=== PATIENT | female | born 1970 | race Hispanic/Latino ===

== ENCOUNTER 2019-04-11 12:15 | Emergency (ER) | payer OTHER ==
[~2019-04-11] VITALS: Ht 154.9 cm; Wt 77.1 kg
--- OUTSIDE RECORDS SUMMARY | 2019-04-11 12:18 | XMS REPORT ---
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 Name Role Phone Anthony Echeverria CP Unavailable Allergies No Known Allergies Problems Problem Type Condition Code Onset Dates Condition Status Problem Transient cerebral ischemia, unspecified type G45.9 Active Problem Syncope, unspecified syncope type R55 Active Problem Left sided numbness R20.0 Active Problem Non-rheumatic mitral regurgitation I34.0 Active Problem Family history of coronary arteriosclerosis Z82.49 Active Problem Nonrheumatic tricuspid (valve) insufficiency I36.1 Active Problem Precordial pain R07.2 Active Problem DELACRUZ (dyspnea on exertion) R06.09 Active Problem Dizziness R42 Active Problem Palpitations R00.2 Active Medications No Known Medications Results No Known Results Summary Purpose [employer] Submission
--- OUTSIDE RECORDS SUMMARY | 2019-04-11 12:18 | XMS REPORT ---
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
--- OUTSIDE RECORDS SUMMARY | 2019-04-11 12:18 | XMS REPORT | Continuity of Care Document ---
Author Author [facility] Interface Address Unknown Phone Unavailable Problems Problem Status Onset Date Classification Date Reported Comments Source Transient cerebral ischemia, unspecified type Active Problem 09/28/2018 Mohamed O Jeroudi Syncope, unspecified syncope type Active Problem 09/28/2018 Mohamed O Jeroudi Left sided numbness Active Problem 09/28/2018 Mohamed O Jeroudi Non-rheumatic mitral regurgitation Active Problem 09/28/2018 Mohamed O Jeroudi Family history of coronary arteriosclerosis Active Problem 09/28/2018 Mohamed O Jeroudi Nonrheumatic tricuspid insufficiency Active Problem 09/28/2018 Mohamed O Jeroudi Precordial pain Active Problem 09/28/2018 Mohamed O Jeroudi DELACRUZ Active Problem 09/28/2018 Mohamed O Jeroudi Dizziness Active Problem 09/28/2018 Mohamed O Jeroudi Palpitations Active Problem 09/28/2018 Mohamed O Jeroudi Medications Medication Details Route Status Patient Instructions Ordering Provider Order Date Source Allergies, Adverse Reactions, Alerts Substance Category Reaction Severity Reaction type Status Date Reported Comments Source Immunizations Immunization Date Given Site Status Last Updated Comments Source Results Order Name Results Value Reference Range Date Interpretation Comments Source Vital Signs Vital Sign Value Date Comments Source Encounters Location Location Details Encounter Type Encounter Number Reason For Visit Attending Provider ADM Date DC Date Status Source Procedures Procedure Code Date Perfomer Comments Source
[2019-04-11] MEDS ORDERED: SODIUM CHLORIDE 0.9% 1000ML 1,000 ML IV STA (12:58)
[2019-04-11 13:25] LABS: BASOPHILS % 0.4 % (0.0-1.0); EOSINOPHILS # (AUTO) 0.1 (0.0-0.4); EOSINOPHILS % 1.9 % (0.0-6.0); HEMATOCRIT 40.7 % (34.2-44.1); HEMOGLOBIN 13.3 g/dL (12.0-16.0); LYMPHOCYTES # (AUTO) 2.5 (1.0-3.2); LYMPHOCYTES % 35.2 % (18.0-39.1); MEAN CORPUSCULAR HEMOGLOBIN 28.8 pg (28-32); MEAN CORPUSCULAR HGB CONC 32.7 g/dL (31-35); MEAN CORPUSCULAR VOLUME 88.1 fL (81-99); MONOCYTES # (AUTO) 0.4 (0.2-0.8); MONOCYTES % 5.2 % (4.4-11.3); PLATELET COUNT 279 x10e3/uL (140-360); RED BLOOD COUNT 4.62 x10e6/uL (3.6-5.1); RED CELL DISTRIBUTION WIDTH 12.7 % (11.7-14.4)
[2019-04-11] MEDS ORDERED: ONDANSETRON HCL INJ 2MG/ML 2ML 2 MG/ML VIAL IV ONE (13:30)
[2019-04-11] MEDS ORDERED: KETOROLAC TROMETHAMINE 30 MG/ML VIAL IV ONE (13:30)
[2019-04-11 13:46] LABS: ALANINE AMINOTRANSFERASE 14 IU/L (0-55); ALBUMIN 3.8 g/dL (3.5-5.0); ALBUMIN/GLOBULIN RATIO 1.1 (0.8-2.0); ALKALINE PHOSPHATASE 78 IU/L (40-150); ANION GAP 12.2 mmol/L (8-16); BLOOD UREA NITROGEN 11 mg/dL (7-26); BUN/CREATININE RATIO 14 (6-25); CALCIUM 9.4 mg/dL (8.4-10.2); CARBON DIOXIDE 23 mmol/L (22-29); CHLORIDE 104 mmol/L (98-107); CREATININE, SERUM 0.79 mg/dL (0.57-1.11); EST GLOMERULAR FILTRATION RATE > 60 ML/MIN (60-); GLUCOSE 93 mg/dL (74-118); POTASSIUM 4.2 mmol/L (3.5-5.1); SODIUM 135 mmol/L (136-145)
--- NOTE | 2019-04-11 14:30 | Diagnostic Imaging Report ---
EXAMINATION: Transvaginal ultrasound. CLINICAL INDICATION: Right lower quadrant pain, concern for ovarian torsion COMPARISON: None DISCUSSION: Transverse and sagittal transvaginal images were obtained of the pelvis. Color Doppler and spectral waveform analysis was also performed. The uterus is anteflexed and normal in size measuring 8.2 x 3.8 x 4.2 cm. The endometrial stripe is homogeneous, normal in thickness and measures 0.5 centimeters. Multiple cervical Nabothian cysts are identified. The left ovary is normal in size and echogenicity measuring 2.2 x 1.7 x 2.1 cm. Arterial and venous waveforms are identified within the left ovary by color Doppler and spectral waveform analysis. The right ovary is poorly visualized secondary to overlying bowel gas. No free fluid or pelvic masses are seen. IMPRESSION: The right ovary is not visualized secondary to overlying bowel gas. Unremarkable appearance of the left ovary with arterial and venous flow identified by color Doppler/spectral waveform analysis. Signed by: Dr. Apollo Thacker M.D. on 04/11/2019 2:26 PM
--- NOTE | 2019-04-11 15:14 | NUR ---
IVF INFUSING. PT DENIED NEED FOR NAUSEA/PAIN MEDS
[2019-04-11] MEDS ORDERED: SODIUM CHLORIDE 0.9% 50ML 50 ML ONE (15:18)
[2019-04-11] MEDS ORDERED: IOPAMIDOL 370 MG/ML 200 ML INFUS..BTL INJ ONE (15:18)
[2019-04-11 15:23] LABS: CLARITY,URINE CLEAR (CLEAR); COLOR,URINE YELLOW (YELLOW); KETONES,URINE NEGATIVE (NEGATIVE); LEUKOCYTE ESTERASE ,URINE NEGATIVE (NEGATIVE); NITRITE,URINE NEGATIVE (NEGATIVE); PROTEIN,URINE DIPSTICK NEGATIVE (NEGATIVE); URINE UROBILINOGEN 0.2 mg/dL (0.2 - 1)
[2019-04-11 15:24] LABS: BILIRUBIN,URINE NEGATIVE (NEGATIVE)
--- NOTE | 2019-04-11 15:31 | Diagnostic Imaging Report ---
EXAMINATION: CT of the abdomen and pelvis with contrast. TECHNIQUE: Spiral CT images of the abdomen and pelvis were performed from the lung bases to the lesser trochanters after the intravenous administration of 100 cc Isovue-370. Coronal and sagittal reformatted images were obtained. COMPARISON: Pelvic ultrasound same day CLINICAL HISTORY:Right lower quadrant pain DISCUSSION: ABDOMEN/PELVIS: LOWER THORAX:Bandlike atelectasis in the lingula. Otherwise unremarkable. HEPATOBILIARY: Hypoattenuating lesions in segments 2, 3, and 4B with average internal attenuation less than 20 Hounsfield units compatible with simple cysts. Additional subcentimeter hypoattenuating lesions throughout the liver, too small to further characterize but likely to represent additional small cysts. No intrahepatic biliary dilatation. Gallbladder is unremarkable. SPLEEN: No splenomegaly. PANCREAS: No focal masses or ductal dilatation. ADRENALS: No adrenal nodules. 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 Mild caliectasis of the upper pole moiety without overt hydronephrosis. No renal, ureteral, or bladder calculi. No gross mass lesion. PELVIC ORGANS/BLADDER: Urinary bladder is unremarkable. Multiple cervical Nabothian cysts. Uterus is neutral in position and appears normal. No adnexal mass. PERITONEUM/RETROPERITONEUM: No ascites. No pneumoperitoneum. LYMPH NODES: No pelvic sidewall, retroperitoneal, or mesenteric lymphadenopathy. VESSELS: Abdominal aorta, major branch vessels, and iliac arterial systems are well-visualized and patent. Portal vein, splenic vein, and central superior mesenteric vein are patent. GI TRACT: The large bowel is notable for scattered diverticula at highest concentration along the descending and sigmoid colon. There is a focally inflamed diverticulum in the ascending colon near the hepatic flexure, as seen on series 2 image 40, with adjacent mesocolic stranding. No gurdeep perforation or drainable fluid collection. The appendix is normal. No small bowel dilatation to suggest obstruction. Small sliding hiatal hernia. BONES AND SOFT TISSUE: No osseous destructive lesions. No focal soft tissue abnormalities. IMPRESSION: Short segment diverticulitis involving the ascending colon, without gurdeep perforation or drainable fluid collection. Normal appendix and right ovary. 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 Signed by: Dr. Apollo Thacker M.D. on 04/11/2019 3:28 PM
[2019-04-11 15:35] LABS: PREGNANCY TEST, URINE NEGATIVE (NEGATIVE)
[2019-04-11 16:02] LABS: BACTERIA,URINE MANY /HPF; EPITHELIAL CELLS,URINE MANY /LPF
== END 2019-04-11 16:28 | disposition home or self-care (01) ==
LOC: ER 12:15
DX: R10.31 Right lower quadrant pain (principal); R11.0 Nausea; K57.32 Diverticulitis of large intestine without perforation or abscess without bleeding; K21.9 Gastro-esophageal reflux disease without esophagitis
CPT/HCPCS: 36415; 74177; 76830; 80053; 81001; 81025; 84702; 85025; 87086; 93976; 99284; J7030; Q9967; J1885; J2405